=== PATIENT | female | born 1975 | race African-American/Black ===

== ENCOUNTER 2021-06-12 22:03 | Emergency (ER) | payer OTHER ==
[~2021-06-12] VITALS: Ht 165.1 cm; Wt 126.0 kg
[2021-06-13 00:57] LABS: BASOPHILS % 0.7 % (0.0-2.0); HEMATOCRIT. 32.2 % (36.0-48.0); HEMOGLOBIN. 10.2 g/dL (12.0-16.0); LYMPHOCYTES % 36.3 % (20.0-50.0); MEAN CORPUSCULAR HEMOGLOBIN 27.6 pg (28.0-32.0); MEAN CORPUSCULAR VOLUME 86.6 fL (81.0-99.0); MEAN PLATELET VOLUME 7.8 fl (7.4-10.4); MONOCYTES % 6.2 % (2.0-8.0); NEUTROPHILS % 51.8 % (40.0-76.0); PLATELET 407 x1000/uL (130-400); RED BLOOD CELL COUNT 3.71 mill/uL (4.2-5.4); RED CELL DISTRIBUTION WIDTH 14.9 % (11.6-14.6)
[2021-06-13 01:01] LABS: CHLORIDE 107 mEq/L (98-107)
[2021-06-13 01:11] LABS: CLARITY URINE CLEAR (CLEAR); COLOR URINE YELLOW (YELLOW); KETONES URINE TRACE (NEGATIVE); LEUKOCYTE ESTERASE URINE NEGATIVE (NEGATIVE); NITRITE URINE NEGATIVE (NEGATIVE); OCCULT BLOOD URINE NEGATIVE (NEGATIVE); PH URINE 5.5 (4.5-8.0); PROTEIN URINE TRACE (NEGATIVE); SPECIFIC GRAVITY URINE 1.045 (1.005-1.030)
[2021-06-13 01:23] LABS: HCG SCREEN NEGATIVE
[2021-06-13 04:01] VITALS: BP 136/86
== END 2021-06-13 04:02 | disposition home or self-care (01) ==
LOC: ER 22:03
DX: S05.11XA Contusion of eyeball and orbital tissues, right eye, initial encounter (principal); I10 Essential (primary) hypertension; V43.02XA Car driver injured in collision with other type car in nontraffic accident, initial encounter; Y93.89 Activity, other specified; Y92.410 Unspecified street and highway as the place of occurrence of the external cause; Z91.013 Allergy to seafood; Z98.890 Other specified postprocedural states
CPT/HCPCS: 36415; 71250; 74176; 80053; 81003; 81025; 84484; 84703; 85025; 93005; 99285

== ENCOUNTER 2021-09-29 10:26 | Emergency (ER) | payer OTHER ==
[~2021-09-29] VITALS: Ht 165.1 cm; Wt 131.0 kg
[2021-09-29] MEDS ORDERED: [UNRECOGNIZED DRUG - OTHER] (10:40)
[2021-09-29] MEDS ORDERED: INSU100I24 SQ ×2 (10:41→12:26)
[2021-09-29] MEDS ORDERED: INSU100I38 SQ ×2 (10:41→12:26)
[2021-09-29 12:56] VITALS: BP 140/78
== END 2021-09-29 12:59 | disposition home or self-care (01) ==
LOC: ER 10:26
DX: Z20.822 Contact with and (suspected) exposure to COVID-19 (principal); I10 Essential (primary) hypertension; E11.9 Type 2 diabetes mellitus without complications; Z79.4 Long term (current) use of insulin
CPT/HCPCS: 82962; 87426; 99283; C9803

== ENCOUNTER 2023-01-16 15:14 | Emergency (ER) | payer OTHER ==
[~2023-01-16] VITALS: Ht 170.2 cm; Wt 118.0 kg
[~2023-01-16 15:14] MED LIST: INSU100I24 SQ; INSU100I53 SQ; [UNRECOGNIZED DRUG - OTHER]
[2023-01-16 15:19] VITALS: BP 191/113; PULSE 105; RESP 18; TEMP 98.5; O2SAT 100
[2023-01-16 15:58] LABS: CLARITY URINE CLOUDY (CLEAR); COLOR URINE YELLOW (YELLOW); GLUCOSE URINE NEGATIVE (NEGATIVE); KETONES URINE NEGATIVE (NEGATIVE); LEUKOCYTE ESTERASE URINE 2+ (NEGATIVE); NITRITE URINE NEGATIVE (NEGATIVE); OCCULT BLOOD URINE NEGATIVE (NEGATIVE); PROTEIN URINE 1+ (NEGATIVE); SPECIFIC GRAVITY URINE 1.029 (1.005-1.030)
[2023-01-16 16:00] LABS: YEAST URINE NONE SEEN
[2023-01-16 16:13] LABS: BASOPHILS % 0.7 % (0.0-2.0); DIFFERENTIAL COMMENT 0; EOSINOPHILS % 3.8 % (0.0-5.0); HEMATOCRIT. 27.7 % (36.0-48.0); HEMOGLOBIN. 8.5 g/dL (12.0-16.0); LYMPHOCYTES % 33.7 % (20.0-50.0); MEAN CORPUSCULAR HEMOGLOBIN 23.7 pg (28.0-32.0); MEAN CORPUSCULAR HGB CONC 30.8 g/dL (31.0-37.0); MEAN CORPUSCULAR VOLUME 77.1 fL (81.0-99.0); MEAN PLATELET VOLUME 7.8 fl (7.4-10.4); MONOCYTES % 7.9 % (2.0-8.0); NEUTROPHILS % 53.9 % (40.0-76.0); PLATELET 435 x1000/uL (130-400); RED BLOOD CELL COUNT 3.59 mill/uL (4.2-5.4); WHITE BLOOD COUNT 13.5 x1000/uL (4.5-11.0)
[2023-01-16 16:18] LABS: CHLORIDE 106 mEq/L (98-107); INDEX HEMOLYSI 1 (1-3); INDEX ICTERIC 1 (1-4); INDEX LIPEMIC 1 (1-3); POTASSIUM 3.7 mEq/L (3.5-5.1); SODIUM 138 mEq/L (136-145)
[2023-01-16 16:19] LABS: HCG SCREEN NEGATIVE
[2023-01-16 16:22] LABS: RBC URINE 0-2 /hpf (0-2); SQUAMOUS EPITHELIAL CELL URINE 2+ /lpf (RARE/1+)
[2023-01-16 16:24] LABS: BACTERIA URINE FEW; WBC URINE 0-2 /hpf (0-2)
[2023-01-16 16:26] LABS: ALANINE AMINOTRANSFERASE 26 IU/L (13-61); ALBUMIN 3.6 g/dL (3.4-5.0); ASPARTATE AMINOTRANSFERASE 21 IU/L (15-37); BETA HYDROXYBUTYRATE 0.1 mMol/L (0.0-0.3); BILIRUBIN TOTAL 0.2 mg/dL (0.1-1.0); CALCIUM 8.7 mg/dL (8.5-10.1); CARBON DIOXIDE 25 mEq/L (21-32); CREATININE 0.8 mg/dL (0.6-1.3); GLUCOSE 151 mg/dL (70-105); PROTEIN TOTAL 7.2 g/dL (6.0-8.3); UREA NITROGEN BLOOD 13 mg/dL (7-21)
[2023-01-16] MEDS ORDERED: INSU100I24 SQ (17:42)
[2023-01-16] MEDS ORDERED: INSU100I53 SQ (17:42)
[2023-01-16] MEDS ORDERED: HYDRALAZINE HCL 25MG TABLET PO ONE (23:15)
[2023-01-16] MEDS ORDERED: ACETAMINOPHEN 325MG TABLET PO ONE (23:15)
== END 2023-01-17 02:10 | disposition home or self-care (01) ==
LOC: ER 15:49
DX: R68.89 Other general symptoms and signs (principal); E11.9 Type 2 diabetes mellitus without complications; I10 Essential (primary) hypertension; Z98.890 Other specified postprocedural states
CPT/HCPCS: 36415; 80053; 81003; 81025; 82010; 82962; 84703; 85025; 99283